=== PATIENT | male | born 1970 | race Caucasian/White ===

== ENCOUNTER 2017-01-02 09:27 | Inpatient (IN) | payer BC, OTHER ==
[~2017-01-02] VITALS: Ht 182.9 cm; Wt 90.0 kg
[~2017-01-02 09:27] MED LIST: ANDR1GEL TD; BUPR-175 PO
[2017-01-02 09:29] VITALS: BP 132/72; PULSE 75; RESP 14; TEMP 97.7; O2SAT 97
[2017-01-02] MEDS ORDERED: FOLI1TAB6 PO (09:42)
[2017-01-02] MEDS ORDERED: VANCOMYCIN INJ 1,000 MG in SODIUM CHLOR 0.9% 250 ML INJ 250 ML IV ONE (09:45)
[2017-01-02] MEDS ORDERED: ONDANSETRON HCL 4 MG/2 ML VIAL IV PUSH ONE (09:45)
[2017-01-02] MEDS ORDERED: HYDROmorphone HCL PF 1 MG/ML VIAL IV PUSH ONE (09:45)
[2017-01-02] MEDS ORDERED: TETANUS/DIPHTHERIA TOXOID ADULT 0.5 ML VIAL IM ONE (09:45)
--- NOTE | 2017-01-02 09:58 | PD ---
HPI Chief Complaint: Skin Problem Time Seen by Provider: 09:44 Travel History International Travel<30 days: No Contact w/Intl Traveler<30days: No Traveled to known affect area: No History of Present Illness HPI This is a 46-year-old male who presents with worsening swelling and pain of his left hand. Patient states 3 days ago he struck his hand while working on a car. He states that it started getting red and having pain. He was seen at [facility] where they started him on an antibiotic and a nonnarcotic pain medicine. He reports that today it is twice as swollen and the redness is running up his arm. He denies any fevers, chills. Patient reports increased pain and increased swelling. Unsure of his tetanus immunization. He reports they did not take an x-ray of his hand yesterday. PFSH Past Medical History Anxiety: Yes Diminished Hearing: No Psychiatric: Yes Tetanus Vaccination: > 5 Years Influenza Vaccination: No Past Surgical History Surgical History: No Previous Surgery Social History Alcohol Use: Yes (OCC ) Tobacco Use: No (quit 2 years ago) Substance Use: No Allergies-Medications (Allergen,Severity, Reaction): Coded Allergies: No Known Allergies (Verified Allergy, Unknown, 01/02/17) Reported Meds & Prescriptions Reported Meds & Active Scripts Active Reported Clindamycin (Clindamycin HCl) 300 Mg Cap 600 Mg PO Q8H Tramadol (Tramadol HCl) 50 Mg Tab 50 Mg PO Q6H PRN Folic Acid 1 Mg Tablet 1 Mg PO DAILY Review of Systems Except as stated in HPI: all other systems reviewed are Neg General / Constitutional: No: Fever, Chills HENT: No: Headaches, Lightheadedness Cardiovascular: No: Chest Pain or Discomfort, Palpitations Respiratory: No: Cough, Shortness of Breath Gastrointestinal: No: Nausea, Vomiting, Abdominal Pain Musculoskeletal: Positive: Limited ROM (hindered to pain), Edema (left dorsum of the hand left dorsum of the hand), Pain Neurologic: No: Weakness, Dizziness, Headache Psychiatric: No: Substance Abuse Physical Exam Narrative GENERAL: Well-nourished, well-developed patient, in no acute respiratory distress. SKIN: Focused skin assessment warm/dry. HEAD: Normocephalic/atraumatic. EYES: No scleral icterus. No injection or drainage. NECK: Supple, trachea midline. No JVD or lymphadenopathy. CARDIOVASCULAR: Regular rate and rhythm without murmurs, gallops, or rubs. RESPIRATORY: Breath sounds equal bilaterally. No accessory muscle use. GASTROINTESTINAL: Abdomen soft, non-tender, nondistended. MUSCULOSKELETAL: Examination patient's left hand, he has redness and swelling to the entire hand. There is lymphangitis to the left side of his posterior forearm. There is an abrasion/nidus in the middle of his dorsum of his hand. NEUROLOGICAL: Awake and alert. Cranial nerves II through XII intact. Motor grossly within normal limits. Five out of 5 muscle strength in all muscle groups. Normal speech. Data Data Last Documented VS Vital Signs Date Time Temp Pulse Resp B/P (MAP) Pulse Ox O2 Delivery O2 Flow Rate FiO2 01/02/17 11:30 97.9 81 16 128/83 (98) 99 Room Air Orders Orders Basic Metabolic Panel (Bmp) (01/02/17 09:44) Complete Blood Count With Diff (01/02/17 09:44) Blood Culture (01/02/17 09:44) Wound Culture And Gram Stain (01/02/17 09:44) Tetanus/Diphtheria Tox Adult (Tetanus/Di (01/02/17 09:45) Vancomycin Inj (Vancomycin Inj) (01/02/17 09:45) Ondansetron Inj (Zofran Inj) (01/02/17 09:45) Hydromorphone Pf Inj (Dilaudid Pf Inj) (01/02/17 09:45) Hand, Limited (2vws) (01/02/17 09:44) Admit Order (Ed Use Only) (01/02/17 11:44) Labs Laboratory Tests Test 01/02/17 10:00 White Blood Count 13.0 TH/MM3 Red Blood Count 5.28 MIL/MM3 Hemoglobin 15.4 GM/DL Hematocrit 46.5 % Mean Corpuscular Volume 88.2 FL Mean Corpuscular Hemoglobin 29.2 PG Mean Corpuscular Hemoglobin Concent 33.1 % Red Cell Distribution Width 14.1 % Platelet Count 193 TH/MM3 Mean Platelet Volume 8.6 FL Neutrophils (%) (Auto) 58.8 % Lymphocytes (%) (Auto) 17.4 % Monocytes (%) (Auto) 20.5 % Eosinophils (%) (Auto) 2.2 % Basophils (%) (Auto) 1.1 % Neutrophils # (Auto) 7.6 TH/MM3 Lymphocytes # (Auto) 2.3 TH/MM3 Monocytes # (Auto) 2.7 TH/MM3 Eosinophils # (Auto) 0.3 TH/MM3 Basophils # (Auto) 0.1 TH/MM3 CBC Comment AUTO DIFF Differential Comment AUTO DIFF CONFIRMED Blood Urea Nitrogen 15 MG/DL Creatinine 1.15 MG/DL Random Glucose 90 MG/DL Calcium Level 8.3 MG/DL Sodium Level 135 MEQ/L Potassium Level 4.3 MEQ/L Chloride Level 102 MEQ/L Carbon Dioxide Level 26.1 MEQ/L Anion Gap 7 MEQ/L Estimat Glomerular Filtration Rate 69 ML/MIN MDM Medical Decision Making Medical Screen Exam Complete: Yes Emergency Medical Condition: Yes Differential Diagnosis Saline as versus abscess versus failed outpatient antibiotics versus fracture Narrative Course This is a 46-year-old male presents today with complaints of left hand swelling and increased redness. The patient was seen yesterday at the clinic surgical care and started on antibiotics. The patient states that the swelling has doubled in size. He also reports increased pain. There is no reported fever. The patient has been started on vancomycin 1 g I V times one dose. There's been a wound culture and blood culture sent off. He'll be admitted to the medicine service for failed outpatient antibiotics. She was discussed with Dr. Canales who agreed to admit the patient to his service. Diagnosis Primary Impression: Cellulitis of hand, left Additional Impression: failed outpatient antibiotics Admitting Information Admitting Physician Requests: Admit Chapito Berman MD Jan 02, 2017 09:58
[2017-01-02 10:34] LABS: AUTOMATED NEUTROPHIL # 7.6 TH/MM3 (1.8-7.7); BASOPHIL # 0.1 TH/MM3 (0-0.2); BASOPHIL % 1.1 % (0.0-2.0); EOSINOPHIL # 0.3 TH/MM3 (0-0.4); EOSINOPHIL % 2.2 % (0.0-4.0); HEMATOCRIT 46.5 % (39.0-51.0); LYMPH % 17.4 % (9.0-44.0); LYMPHOCYTE # 2.3 TH/MM3 (1.0-4.8); MEAN CELL VOLUME 88.2 FL (80.0-100.0); MEAN CORPUSCULAR HEMOGLOBIN 29.2 PG (27.0-34.0); MEAN CORPUSCULAR HGB CONC 33.1 % (32.0-36.0); MONO % 20.5 % (0.0-8.0); NEUT % 58.8 % (16.0-70.0); PLATELET COUNT 193 TH/MM3 (150-450); RED BLOOD COUNT 5.28 MIL/MM3 (4.50-5.90); RED CELL DISTRIBUTION WIDTH 14.1 % (11.6-17.2)
[2017-01-02 10:36] LABS: HEMO FLAGS AUTO DIFF
[2017-01-02 10:50] LABS: BICARBONATE 26.1 MEQ/L (21.0-32.0); POTASSIUM 4.3 MEQ/L (3.5-5.1)
[2017-01-02 11:01] LABS: SCAN/DIFF AUTO DIFF CONFIRMED
[2017-01-02 11:30] VITALS: BP 128/83; PULSE 81; RESP 16; TEMP 97.9; O2SAT 99
--- NOTE | 2017-01-02 11:47 | HHI.HP ---
HPI Service Family Medicine Primary Care Physician Emil Linda M.D. Admission Diagnosis left hand cellulitis, failed outpatient antibiotics Diagnoses: International Travel<30 Days: No Contact w/Intl Traveler<30days: No Known Affected Area: No History of Present Illness Patient is a 46- year-old- Male with no significant past medical history presenting to the ED with complaints of worsening Left hand pain, redness and swelling. Patient stated that Thursday he lacerated the top of his Left hand while repairing a car. He went to [place] yesterday where he was prescribed bactrim and clyndamycin without any improvements. He reports today his Left hand pain and swelling increased and the redness is spreading past his wrist. Pt rates pain 6-7/10 initially but currently 2/10 after pain medication were given. Denies fever, chills, N/V, numbness or tingling of Left hand. Of note pt stated he received tetanus vaccine. Patient is accompanied by his . (Deb Álvarez MD, R1) Review of Systems Constitutional: DENIES: Fever, Chills Gastrointestinal: DENIES: Nausea, Vomiting Neurologic: DENIES: Paresthesias Other as per hpi (Deb Álvarez MD, R1) Past Family Social History Past Medical History none Past Surgical History none Reported Medications Testosterone inj folic acid (Deb Álvarez MD, R1) Allergies: Coded Allergies: No Known Allergies (Verified Allergy, Unknown, 01/02/17) Family History Mother- DM Father- hepatitis C Social History Patient lives with and kids Denies smoking or illicit drug use Alcohol use twice a wk, about 6-7 beers Marijuana use daily (Deb Álvarez MD, R1) Physical Exam Vital Signs Vital Signs Date Time Temp Pulse Resp B/P (MAP) Pulse Ox O2 Delivery O2 Flow Rate FiO2 01/02/17 10:26 17 01/02/17 09:39 17 01/02/17 09:29 97.7 75 14 132/72 (92) 97 Physical Exam GENERAL: This is a well-nourished, well-developed patient, in no apparent distress. SKIN: No rashes, ecchymoses or lesions. Cool and dry. HEAD: Atraumatic. Normocephalic. No temporal or scalp tenderness. EYES: Pupils equal round and reactive. Extraocular motions intact. No scleral icterus. No injection or drainage. ENT: Nose without bleeding, purulent drainage or septal hematoma. Throat without erythema, tonsillar hypertrophy or exudate. Uvula midline. Airway patent. NECK: Trachea midline. No JVD or lymphadenopathy. Supple, nontender, no meningeal signs. CARDIOVASCULAR: Normal S1 and S2. Regular rate and rhythm without murmurs, gallops, or rubs. RESPIRATORY: Clear to auscultation. Breath sounds equal bilaterally. No wheezes , rales, or rhonchi. GASTROINTESTINAL: Abdomen soft, non-tender, nondistended. No hepato-splenomegaly , or palpable masses. No guarding. MUSCULOSKELETAL: Left hand: Crusted laceration, erythema of dorsum aspect of hand extending to distal forearm. +2 Swelling noted mainly on dorsum of Left hand. Limited range of motion due to pain. +2 radial pulse on Left hand. Normal sensation. No pus was observed on palpation. No calf tenderness. Negative Homans sign bilaterally. +2 Post. tibial pulses BL. NEUROLOGICAL: Awake and alert. Cranial nerves II through XII intact. Motor and sensory grossly within normal limits. Normal sensation in all extremities. Normal speech. Laboratory Laboratory Tests Test 01/02/17 10:00 White Blood Count 13.0 Red Blood Count 5.28 Hemoglobin 15.4 Hematocrit 46.5 Mean Corpuscular Volume 88.2 Mean Corpuscular Hemoglobin 29.2 Mean Corpuscular Hemoglobin Concent 33.1 Red Cell Distribution Width 14.1 Platelet Count 193 Mean Platelet Volume 8.6 Neutrophils (%) (Auto) 58.8 Lymphocytes (%) (Auto) 17.4 Monocytes (%) (Auto) 20.5 Eosinophils (%) (Auto) 2.2 Basophils (%) (Auto) 1.1 Neutrophils # (Auto) 7.6 Lymphocytes # (Auto) 2.3 Monocytes # (Auto) 2.7 Eosinophils # (Auto) 0.3 Basophils # (Auto) 0.1 CBC Comment AUTO DIFF Differential Comment AUTO DIFF CONFIRMED Blood Urea Nitrogen 15 Creatinine 1.15 Random Glucose 90 Calcium Level 8.3 Sodium Level 135 Potassium Level 4.3 Chloride Level 102 Carbon Dioxide Level 26.1 Anion Gap 7 Estimat Glomerular Filtration Rate 69 Date/Time Source Procedure Growth Status 01/02/17 10:00 Blood Peripheral Aerobic Blood Culture Pending Received 01/02/17 10:00 Blood Peripheral Anaerobic Blood Culture Pending Received 01/02/17 10:10 Wound Hand Gram Stain - Final Resulted 01/02/17 10:10 Wound Hand Wound Culture Pending Resulted (Deb Álvarez MD, R1) Result Diagram: 01/02/17 1000 01/02/17 1000 Imaging Last Impressions Hand X-Ray 01/02/17 0944 Signed Impressions: Service Date/Time: Monday, January 02, 2017 11:09 - CONCLUSION: Unremarkable limited examination of the left hand. Dave Olivera MD (Deb Álvarez MD, R1) Caprini VTE Risk Assessment Caprini VTE Risk Assessment: No/Low Risk (score <= 1) Caprini Risk Assessment Model Point Value = 1 Point Value = 2 Point Value = 3 Point Value = 5 Age 41-60 Minor surgery BMI > 25 kg/m2 Swollen legs Varicose veins or History of unexplained or recurrent spontaneous Oral contraceptives or hormone replacement Sepsis (< 1 month) Serious lung disease, including pneumonia (< 1 month) Abnormal pulmonary function Acute myocardial infarction Congestive heart failure (< 1 month) History of inflammatory bowel disease Medical patient at bed rest Age 61-74 Arthroscopic surgery Major open surgery (> 45 min) Laparoscopic surgery (> 45 min) Malignancy Confined to bed (> 72 hours) Immobilizing plaster cast Central venous access Age >= 75 History of VTE Family history of VTE Factor V Leiden Prothrombin [id number] Lupus anticoagulant Anticardiolipin antibodies Elevated serum homocysteine Heparin-induced thrombocytopenia Other congenital or acquired thrombophilia Stroke (< 1 month) Elective arthroplasty Hip, pelvis, or leg fracture Acute spinal cord injury (< 1 month) Prophylaxis Regimen Total Risk Factor Score Risk Level Prophylaxis Regimen 0-1 Low Early ambulation 2 Moderate Order ONE of the following: *Sequential Compression Device (SCD) *Heparin 5000 units SQ BID 3-4 Higher Order ONE of the following medications: *Heparin 5000 units SQ TID *Enoxaparin/Lovenox 40 mg SQ daily (WT < 150 kg, CrCl > 30 mL/min) *Enoxaparin/Lovenox 30 mg SQ daily (WT < 150 kg, CrCl > 10-29 mL/min) *Enoxaparin/Lovenox 30 mg SQ BID (WT < 150 kg, CrCl > 30 mL/min) AND/OR *Sequential Compression Device (SCD) 5 or more Highest Order ONE of the following medications: *Heparin 5000 units SQ TID (Preferred with Epidurals) *Enoxaparin/Lovenox 40 mg SQ daily (WT < 150 kg, CrCl > 30 mL/min) *Enoxaparin/Lovenox 30 mg SQ daily (WT < 150 kg, CrCl > 10-29 mL/min) *Enoxaparin/Lovenox 30 mg SQ BID (WT < 150 kg, CrCl > 30 mL/min) AND *Sequential Compression Device (SCD) (Deb Álvarez MD, R1) Assessment and Plan Assessment and Plan Patient is a 46 yo male admitted for of Left hand cellulitis. Patient failed outpatient treatment with bactrim. hemodynamically stable. Afebrile, WBC- 13. Code Status Full code Discussed Condition With sdw Dr. Canales wdw Dr. Aleman (Deb Álvarez MD, R1) Attending Attestation THIS CASE WAS DISCUSSED WITH THE RESIDENT PHYSICIAN. I HAVE REVIEWED THE RECORD AND AGREE WITH THE ABOVE NOTE AND PLAN OF CARE WAS DISCUSSED. I HAVE AUTHORIZED THE ORDER FOR PLACEMENT IN OUT-PATIENT OBSERVATION STATUS. (Prisca Aleman MD) Problem List: (1) Cellulitis of hand, left ICD Codes: L03.114 - Cellulitis of left upper limb Status: Acute Plan: Left hand cellulitis after laceration with car bolt 3 days ago. Range of motion limited due to pain on exam. Neurologically intact. -Afebrile, VS WNL -Leukocytosis -Hand XRAY: no soft tissue swelling, dislocation or fx. -started on ancef IV Q8h -f/u am labs (2) Nutrition, metabolism, and development symptoms ICD Codes: R63.8 - Other symptoms and signs concerning food and fluid intake Plan: Fluids: not indicated at this time Electrolytes: WNL, replete as needed Nutrition: regular diet DVT ppx: not indicated (Deb Álvarez MD, R1) Deb Álvarez MD, R1 Jan 02, 2017 11:47 Prisca Aleman MD Jan 03, 2017 07:47
[2017-01-02] MEDS ORDERED: TRAM50TA PO (11:54)
[2017-01-02] MEDS ORDERED: CLIN300C5 PO (11:54)
--- NOTE | 2017-01-02 11:56 | RADRPT ---
EXAM DATE/TIME: 01/02/2017 11:09 [facility] COMPARISON: No previous studies available for comparison. INDICATIONS : Lacerated Left hand on Thursday with car bolt. MEDICAL HISTORY : None. SURGICAL HISTORY : None. ENCOUNTER: Initial ACUITY: 3 days PAIN SCORE: 3/10 LOCATION: Left Top of hand. FINDINGS: Two view examination of the left hand demonstrates no soft tissue swelling, dislocation, or fracture. The joint spaces are maintained. Bony mineralization is normal. CONCLUSION: Unremarkable limited examination of the left hand. Dave Olivera MD on January 02, 2017 at 11:54 Board Certified Radiologist. This report was verified electronically.
[2017-01-02] MEDS ORDERED: SODIUM CHLORIDE 0.9% FLUSH 10 ML FLUSH IV FLUSH PRN (12:15)
[2017-01-02] MEDS ORDERED: ACETAMINOPHEN 325 MG TAB PO PRN (12:30)
[2017-01-02 12:45] VITALS: BP 132/77; TEMP 97.8
[2017-01-02 16:00] VITALS: BP 121/76; PULSE 74; RESP 18; TEMP 98.7; O2SAT 95
[2017-01-02 20:00] VITALS: BP 128/72; PULSE 92; RESP 22; TEMP 98.8; O2SAT 94
[2017-01-02] MEDS: KETOROLAC TROMETHAMINE 30 MG/ML (IVP) VIAL IV PUSH PRN (20:00)
[2017-01-02] MEDS: SODIUM CHLORIDE 0.9% FLUSH 10 ML FLUSH IV FLUSH SCH (20:04)
[2017-01-02] MEDS: oxyCODONE/ACETAMINOPHEN 5 MG/325 MG TAB PO PRN (21:38)
[2017-01-02] MEDS: ZOLPIDEM TARTRATE 10 MG TAB PO PRN (21:38)
[2017-01-03] VITALS: BP 119/65; PULSE 86; RESP 22; TEMP 97.8; O2SAT 95
[2017-01-03] MEDS: KETOROLAC TROMETHAMINE 30 MG/ML (IVP) VIAL IV PUSH PRN ×4 (04:09→23:44)
[2017-01-03] MEDS: oxyCODONE/ACETAMINOPHEN 5 MG/325 MG TAB PO PRN ×4 (05:21→22:04)
[2017-01-03 07:15] LABS: AUTOMATED NEUTROPHIL # 7.3 TH/MM3 (1.8-7.7); BASOPHIL # 0.1 TH/MM3 (0-0.2); BASOPHIL % 0.6 % (0.0-2.0); EOSINOPHIL # 0.4 TH/MM3 (0-0.4); EOSINOPHIL % 2.9 % (0.0-4.0); HEMATOCRIT 43.2 % (39.0-51.0); LYMPH % 19.2 % (9.0-44.0); LYMPHOCYTE # 2.4 TH/MM3 (1.0-4.8); MEAN CELL VOLUME 88.9 FL (80.0-100.0); MEAN CORPUSCULAR HEMOGLOBIN 29.6 PG (27.0-34.0); MEAN CORPUSCULAR HGB CONC 33.3 % (32.0-36.0); NEUT % 59.3 % (16.0-70.0); PLATELET COUNT 165 TH/MM3 (150-450); RED BLOOD COUNT 4.86 MIL/MM3 (4.50-5.90); RED CELL DISTRIBUTION WIDTH 14.2 % (11.6-17.2); WHITE BLOOD COUNT 12.3 TH/MM3 (4.0-11.0)
[2017-01-03 07:28] LABS: BICARBONATE 24.4 MEQ/L (21.0-32.0); POTASSIUM 4.3 MEQ/L (3.5-5.1)
[2017-01-03 07:30] LABS: HEMO FLAGS AUTO DIFF
[2017-01-03 08:00] VITALS: BP 116/68; PULSE 70; RESP 17; TEMP 97.4; O2SAT 94
[2017-01-03] MEDS ORDERED: INFLUENZA VIRUS VACCINE (QUADRIVALENT) 0.5 ML SYR IM ONE (10:00)
[2017-01-03 10:51] LABS: SCAN/DIFF AUTO DIFF CONFIRMED
[2017-01-03] MEDS: SODIUM CHLORIDE 0.9% FLUSH 10 ML FLUSH IV FLUSH SCH ×2 (11:32→21:56)
--- NOTE | 2017-01-03 11:34 | HHI.FPPN ---
Subjective Remarks Patient is resting in bed and in no distress. He has no chest pain, shortness of breath, abdominal pain, nausea, vomiting, or diarrhea. His left hand swelling and erythema have decreased a small amount since yesterday. He is able to move all the digits of his hand without pain or limitation. There are no streaks of erythema traveling up his arm. He has pain just on the direct site of the laceration but nowhere else. He has no other complaints this morning. (Samuel Oliva MD R3) Objective Vitals Vital Signs Date Time Temp Pulse Resp B/P (MAP) Pulse Ox O2 Delivery O2 Flow Rate FiO2 01/03/17 08:00 97.4 70 17 116/68 (84) 94 01/03/17 00:00 97.8 86 22 119/65 (83) 95 01/03/17 00:00 97.8 86 22 119/65 (83) 95 01/02/17 20:00 98.8 92 22 128/72 (90) 94 01/02/17 16:00 98.7 74 18 121/76 (91) 95 01/02/17 12:45 97.8 78 16 132/77 (95) 99 01/02/17 11:30 97.9 81 16 128/83 (98) 99 Room Air I/O 01/02/17 01/02/17 01/02/17 01/03/17 01/03/17 01/03/17 06:59 14:59 22:59 06:59 14:59 22:59 Intake Total 250 ml 580 ml 340 ml Output Total 4 ml Balance 250 ml 576 ml 340 ml Intake Oral 480 ml 240 ml IV Total 250 ml 100 ml 100 ml Output Urine Total 4 ml # Voids 1 1 # Bowel Movements 3 (Samuel Oliva MD R3) Result Diagram: 01/03/17 0500 01/03/17 0500 Objective Remarks General: Sitting up in bed, in no distress, appears comfortable. Skin: 1 cm area of healed laceration on the dorsal aspect of his left hand, with scab formation over the site. Pain on palpation just at that particular site and nowhere else. Erythema covers the dorsal left hand but does not extend circumferentially around the hand. Erythema extends up to just proximal to the left wrist. HEENT: Normocephalic, no conjunctivitis or scleral icterus, no nasal discharge. Neck: Supple CV: RRR, no murmur, regular pulses. Radial pulse of left hand is intact. Capillary refill of left hand is normal, less than 2 seconds. Lungs: CTAB Abdomen: Soft, nontender, nondistended, normal bowel sounds. Ext: Swelling of the left hand, with mild pitting, decreased from yesterday somewhat. Neuro: Left hand digits move without any limitation or pain. Good sensation in the left digits. (Samuel Oliva MD R3) A/P Assessment and Plan 46 yo male admitted for of left hand cellulitis after laceration with a relatively clean screw while working on a car. Patient failed outpatient treatment with Bactrim. Discharge Planning Pending return of culture and sensitivities, and continued improvement in cellulitis. (Samuel Oliva MD R3) Attending Attestation Patient seen and examined. Case reviewed and discussed with the resident team. Agree with plan of care as discussed with me and documented in the resident note. The patients symptoms and exam from this morning has progressed. His hand is a little more edematous and into the forearm, he still has good cap- refill, good sensation and movement of his fingers, wrist and hand. Do not feel he has compartment syndrome at this point requiring intervention, however, I am concerned with the rapid progression of his exam over a few hours this morning. His preliminary culture is now growing staph and based on the rapid progression suspect MRSA. Will stop the Ancef and place patient on vancomycin. Will consult hand surgery to evaluate the patient and to assist with monitoring and/or treatment if the swelling in his hand continues to worsen. (Prisca Aleman MD) Problem List: (1) Cellulitis of hand, left ICD Codes: L03.114 - Cellulitis of left upper limb Status: Acute Plan: Left hand cellulitis after laceration with screw 3 days ago. Left hand has full range of motion, normal capillary refill, intact sensation. Erythema and swelling on on the dorsal hand but does not extend circumferentially around the hand. He remains afebrile. He has mild leukocytosis at 12.3, down from 13 yesterday. Hand x-ray shows no soft tissue swelling, dislocation, or fracture. No obvious abscess on physical exam. - Continue Ancef IV q8hrs. - Follow wound culture, adjust antibiotics according to sensitivities. - Follow for fevers and leukocytosis, monitor cellulitis for improvement. (2) Nutrition, metabolism, and development symptoms ICD Codes: R63.8 - Other symptoms and signs concerning food and fluid intake Plan: Fluids: by mouth Electrolytes: WNL Nutrition: regular diet DVT ppx: low risk for DVT, encourage mobilization (Samuel Oliva MD R3) Samuel Oliva MD R3 Jan 03, 2017 11:34 Prisca Aleman MD Jan 03, 2017 13:49
[2017-01-03 12:00] VITALS: BP 125/91; PULSE 80; RESP 17; TEMP 98.5; O2SAT 96
[2017-01-03] MEDS ORDERED: VANCOMYCIN INJ 1,000 MG in SODIUM CHLOR 0.9% 250 ML INJ 250 ML IV SCH ×2 (13:00→22:00)
--- NOTE | 2017-01-03 14:08 | HHI.FPPN ---
Addendum to progress note ADDENDUM Reason for addendum: Additonal documentation Additional information Informed by nurse that patient reports increased swelling and erythema. Went to reevaluate the patient at about 1:00 PM. Indeed, the hand does appear somewhat more edematous and erythematous. He is still able to move all digits, sensation remains intact, has normal capillary refill, and he does not have pain. He does report tingling in his digits that was not there before. Given the status change , we have decided to start vancomycin 1g every 12 hours and consult hand surgery. We will discuss the case with hand surgery on the phone. Will also add a nursing order to monitor closely for symptoms of compartment syndrome. Seen and discussed with Dr. Aleman. Dr. Álvarez spoke with Dr. Salinas by phone about the patient and he states he will come evaluate the patient now. Samuel Oliva MD R3 Jan 03, 2017 14:08
[2017-01-03] MEDS ORDERED: Vancomycin Consult Pharmacy 1 EA OTHER SCH (14:15)
[2017-01-03 16:00] VITALS: BP 121/73; PULSE 91; RESP 17; TEMP 98.3; O2SAT 95
--- NOTE | 2017-01-03 16:21 | MB ---
cc: KAYY BROWN DATE OF CONSULTATION 01/03/17 REASON FOR CONSULTATION Left hand infection. HISTORY OF PRESENT ILLNESS The patient is a 46-year-old left-hand dominant male who presented with complaints of injury to the left hand about 4 days ago. The patient states he was working on his car with a wrench and accidentally lacerated the dorsal aspect of the left hand. The patient was seen at Urgent Care, initially he was put on p.o. antibiotics. Because of worsening symptoms the patient was admitted to [facility] 2 days ago. The patient was put on IV antibiotics. Hand surgery was consulted today for worsening pain and swelling. The patient complains of tingling of the fingertips. Denies any fever. He also complains of mild drainage from the region. The patient also complains of worsening swelling and redness. Denies any constant throbbing pain. PAST MEDICAL AND SURGICAL HISTORY Noted. PHYSICAL EXAMINATION DIRECTED EXAMINATION: Examination of the left hand reveals scab laceration on the dorsal ulnar aspect of the hand. Surrounding swelling and erythema noted. The swelling and erythema extends along the dorsal aspect of the hand and wrist. Tenderness noted along the extensor tendon sheath over the dorsal aspect of the wrist and distal forearm. There is also streaking lymphangitis along the volar aspect of the forearm. No evidence of compartment syndrome of the forearm or the hand noted. The patient is able to make a full fist. Terminal degrees of flexion painful. Terminal degrees of finger extension painful. Wrist range of motion is associated with pain. He has intact capillary refill. He has intact distal sensation. He has palpable radial and ulnar pulses. LABORATORY DATA His lab work was reviewed. He has a white count of 12.3 which is trending down from 13. The patient had an x-ray which was negative for a foreign body. ASSESSMENT A 46-year-old male with infection of the left hand with cellulitis, questionable involvement of the extensor tendon sheath. Surrounding skin was cleaned with alcohol wipes where the scab was removed. No evidence of purulent material noted. We will keep the limb elevated to an IV pole. We will keep the patient n.p.o., book him tentatively for incision and drainage. We will proceed with incision and drainage if there is no improvement in symptoms. As the patient just had food will try to get this done later today or tomorrow morning. Continue with IV antibiotics. MD ABHISHEK Sanchez /3:39 PM /4:12 PM [facility]
[2017-01-03] MEDS ORDERED: GENTAMICIN SULFATE 80 MG/2 ML VIAL ONE (19:57)
[2017-01-03 20:00] VITALS: TEMP 96.6
[2017-01-03] MEDS ORDERED: LACTATED RINGER'S 1000 ML IV PRN (20:00)
--- NOTE | 2017-01-03 20:58 | PD.OP ---
Operative Report Preoperative Diagnosis: (1) abscess left hand/wrist Postoperative Diagnosis: (1) Infectious tenosynovitis of left wrist extensor (2) abscess left hand/wrist Procedure: incision and drainage/extensor tenosynovectomy fourth extensor compartment left hand/wrist Anesthesia: general Surgeon: Caio Salinas Research Lab Assistant(s): cristhian Operation and Findings: abscess left hand dorsum infectious extensor tenosynovitis fourth compartment left wrist Caio Salinas MD Jan 03, 2017 20:58
[2017-01-03] MEDS ORDERED: DO NOT ADM ANY ANTICOAGULANT DRUGS PRN (21:00)
[2017-01-03] MEDS ORDERED: *ONDANSETRON 4 MG VIAL PERIprocedural Use ONLY ONE (21:12)
--- NOTE | 2017-01-03 21:25 | MP ---
cc: KAYY BROWN DATE OF SURGERY 01/03/17 PREOPERATIVE DIAGNOSIS Abscess left hand/wrist. POSTOPERATIVE DIAGNOSIS Infectious tenosynovitis fourth extensor compartment left wrist and abscess left hand/wrist. PROCEDURE Incision and drainage left hand abscess Extensor tenosynovectomy fourth extensor compartment left hand/wrist. SURGEON Dr. Fazal Brown ANESTHESIA General ESTIMATED BLOOD LOSS Minimal TOURNIQUET TIME 49 minutes at 250 mmHg SPECIMEN SENT Swab for culture sensitivity Dispostion: To PACU stable. INDICATIONS The patient is a 46-year-old left-hand dominant male who presented with complaints of injury to the left hand dorsum 4 days ago. The patient was tightening the car tire when his wrench slipped. He had the laceration of the dorsal aspect of the left hand. The patient was seen initially at an outside facility. He was put on p.o. antibiotics. He was admitted to the hospital for IV antibiotics and the patient had worsening symptoms. On examination, he had swelling over the dorsal aspect of the hand and wrist. The patient also has a healed scab over the dorsal aspect of the hand. He had tenderness over the extensor compartments of the hand and wrist. The patient was consented for incision and drainage left hand/wrist. He was explained risk and benefits of the procedure. PROCEDURE IN DETAIL The patient was brought to the operating room under general anesthesia. The left upper extremity was thoroughly prepped and draped. After limb elevation, tourniquet was inflated to 250 mmHg. Incision was marked in a curvilinear fashion over the dorsal aspect of the hand measuring about [id number] centimeters. Incision was made over the proposed incision site incorporating the scab. The scab was excised. Incision was deepened on intraoperative findings included pus within the fourth extensor compartment of the hand and wrist. Hence, decision was made to proceed with extending the incision proximally. The incision was extended proximal to the wrist extensor retinaculum. On exposure, he had extensive inflammatory granulation tissue in the region. Extensor retinaculum was released at the distal part and there was evidence of purulent material within the extensor compartment along with necrotic tissue involving the fourth extensor compartment tendon sheath. Incision was then made proximal to the extensor retinaculum in the distal forearm measuring about 3 cm. An incision was made over the proposed incision site. Soft tissue dissection was carried out. The deep forearm fascia was released. Part of the extensor retinaculum was released at the proximal part. There was evidence of extension of the infection to the fourth extensor compartment tendon sheath over the distal forearm. Excisional debridement of infected extensor tenosynovium was carried out. This was extending along all the flexor tendons including the extensor indices proprius and the EDC tendon to all the fingers. Material was sent for culture and sensitivity. Part of the extensor retinaculum measuring about 1 cm strip was left intact to prevent bow string. Thorough wash was given using 2 liters of normal saline mixed with irrigant. There was also involvement of the subfacial extensor compartment on the dorsal aspect of the hand which was debrided. The tourniquet is deflated. Total tourniquet time was 49 minutes. He had good distal circulation on release of tourniquet. Bleeding points were cauterized with bipolar cautery. Packing of the fourth extensor compartment was carried out both proximally and distally. Skin incision was loosely approximated using 4-0 nylon in a horizontal mattress interrupted fashion. Bulky hand dressing was applied which was held in place by Sof-Rol and bias hand wrap. He had good distal circulation at the end of the procedure. The patient was sent to recovery room in stable condition. We will continue with IV antibiotics. We will keep the limb elevated. We will change the packing tomorrow. Kayy Brown MD SE/ /9:07 PM /9:15 PM PEDRO
[2017-01-03 22:01] VITALS: BP 155/76; PULSE 87; RESP 20; TEMP 96.6; O2SAT 96
[2017-01-03] MEDS: ZOLPIDEM TARTRATE 10 MG TAB PO PRN (23:53)
[2017-01-04] VITALS: BP 133/83; PULSE 79; RESP 20; TEMP 98.6; O2SAT 96
[2017-01-04] MEDS: oxyCODONE/ACETAMINOPHEN 5 MG/325 MG TAB PO PRN ×5 (02:36→21:18)
[2017-01-04 04:00] VITALS: BP 115/68; PULSE 76; RESP 20; TEMP 97.1; O2SAT 91
[2017-01-04] MEDS: KETOROLAC TROMETHAMINE 30 MG/ML (IVP) VIAL IV PUSH PRN ×4 (05:51→23:38)
[2017-01-04 07:48] LABS: BASOPHIL # 0.1 TH/MM3 (0-0.2); BASOPHIL % 0.5 % (0.0-2.0); EOSINOPHIL # 0.4 TH/MM3 (0-0.4); EOSINOPHIL % 3.4 % (0.0-4.0); HEMATOCRIT 40.4 % (39.0-51.0); HEMO FLAGS DIFF FINAL; LYMPHOCYTE # 1.7 TH/MM3 (1.0-4.8); MEAN CELL VOLUME 89.1 FL (80.0-100.0); MEAN CORPUSCULAR HEMOGLOBIN 30.1 PG (27.0-34.0); MEAN CORPUSCULAR HGB CONC 33.8 % (32.0-36.0); MONO % 15.4 % (0.0-8.0); NEUT % 64.7 % (16.0-70.0); PLATELET COUNT 168 TH/MM3 (150-450); RED BLOOD COUNT 4.53 MIL/MM3 (4.50-5.90); RED CELL DISTRIBUTION WIDTH 14.2 % (11.6-17.2); WHITE BLOOD COUNT 10.8 TH/MM3 (4.0-11.0)
[2017-01-04 08:00] VITALS: BP 123/68; PULSE 83; RESP 17; TEMP 98.1; O2SAT 94
[2017-01-04 08:11] LABS: ANION GAP 8 MEQ/L (5-15); AST (GOT) 38 U/L (15-37); BICARBONATE 25.1 MEQ/L (21.0-32.0); BLOOD UREA NITROGEN 15 MG/DL (7-18); CHLORIDE 104 MEQ/L (98-107); GLOMERULAR FILTRATION RATE 73 ML/MIN (>89); POTASSIUM 4.2 MEQ/L (3.5-5.1); SODIUM (NA) 137 MEQ/L (136-145)
[2017-01-04 08:12] LABS: ALT (GPT) 34 U/L (12-78)
[2017-01-04 08:14] LABS: ALKALINE PHOSPHATASE 62 U/L (45-117); TOTAL BILIRUBIN ADULT 0.4 MG/DL (0.2-1.0)
[2017-01-04] MEDS: SODIUM CHLORIDE 0.9% FLUSH 10 ML FLUSH IV FLUSH SCH ×2 (08:42→20:09)
--- NOTE | 2017-01-04 08:57 | HHI.FPPN ---
Subjective Remarks Yesterday evening taken to surgery for I&D with tenosynovectomy. Tolerated procedure well, pain well-controlled today AM. Moving hand without difficulty. No fevers or chills. No CP/SOB. (Zaire Canales MD R2) Objective Vitals Vital Signs Date Time Temp Pulse Resp B/P (MAP) Pulse Ox O2 Delivery O2 Flow Rate FiO2 01/04/17 08:00 98.1 83 17 123/68 (86) 94 01/04/17 04:00 97.1 76 20 115/68 (84) 91 01/04/17 03:43 18 01/04/17 00:44 18 01/04/17 00:00 98.6 79 20 133/83 (100) 96 01/03/17 22:01 96.6 87 20 155/76 (102) 96 01/03/17 21:35 98.1 96 16 143/84 (103) 98 Nasal Cannula 3 01/03/17 21:15 88 10 133/80 (97) 97 Nasal Cannula 3 01/03/17 21:04 97.2 88 16 128/74 (92) 97 Nasal Cannula 3 01/03/17 20:00 96.6 01/03/17 16:00 98.3 91 17 121/73 (89) 95 01/03/17 12:00 98.5 80 17 125/91 (102) 96 I/O 01/03/17 01/03/17 01/03/17 01/04/17 01/04/17 01/04/17 07:00 15:00 23:00 07:00 15:00 23:00 Intake Total 340 ml 1890 ml 240 ml Output Total 10 ml Balance 340 ml 1880 ml 240 ml Intake Oral 240 ml 1140 ml 240 ml IV Total 100 ml 750 ml Estimated Blood Loss 10 ml # Voids 1 4 2 # Bowel Movements 1 (Zaire Canales MD R2) Result Diagram: 01/04/17 0635 01/04/17 0635 Imaging Last Impressions Hand X-Ray 01/02/17 0944 Signed Impressions: Service Date/Time: Monday, January 02, 2017 11:09 - CONCLUSION: Unremarkable limited examination of the left hand. Dave Olivera MD Objective Remarks General: Sitting up on edge of bed, in no distress, appears comfortable. Skin: Hand/wrist wrapped in dressing and elevated in sling CV: NRRR, no murmur. Capillary refill of left hand is normal, less than 2 seconds. Lungs: CTAB Abdomen: Soft, nontender, nondistended, normal bowel sounds. Ext: L hand and wrist wrapped and in sling as above. Moves all digits well. Neuro: Good sensation in all left digits. Procedures 01/03 - I&D with extensor tenosynovectomy of 4th external compartment L hand/ wrist Medications and IVs Current Medications Medications (Trade) Dose Ordered Sig/Jocelyn Route Start Time Stop Time Status Last Admin (NS Flush) 2 ml UNSCH PRN IV FLUSH 01/02/17 12:15 (NS Flush) 2 ml BID IV FLUSH 01/02/17 21:00 01/04/17 08:42 (Toradol Inj) 30 mg Q6HR PRN IV PUSH 01/02/17 12:30 01/07/17 12:29 01/04/17 12:00 (Tylenol) 650 mg Q4H PRN PO 01/02/17 12:30 (Percocet 5-325 Mg) 1 tab Q4H PRN PO 01/02/17 12:45 01/04/17 08:42 (Ambien) 10 mg HS PRN PO 01/02/17 20:00 01/03/17 23:53 Pharmacy Profile Note 0 ml @ 0 mls/hr UNSCH OTHER 01/03/17 14:15 Lactated Ringer's 1,000 ml @ 30 mls/hr Q24H PRN IV 01/03/17 20:00 01/06/17 19:59 Miscellaneous Information ALL NURSING DEPARTME... UNSCH PRN .XX 01/03/17 21:00 01/04/17 20:59 (Zaire Canales MD R2) A/P Assessment and Plan Previously healthy 46 yo male presenting with: (Zaire Canales MD R2) Attending Attestation Patient seen and examined. Case reviewed and discussed with the resident team. Agree with plan of care as discussed with me and documented in the resident note. (Prisca Aleman MD) Problem List: (1) Infectious tenosynovitis of left wrist extensor ICD Codes: M65.132 - Other infective (teno)synovitis, left wrist Status: Resolved Plan: Admitted with cellulitis, taken to OR on 01/03 due to worsening symptoms , found to have infectious tenosynovitis S/p I&D with extensor tenosynovectomy of 4th compartment L hand/wrist on 01/03 Initial wound culture grew MSSA, san-sensitive Abscess Cx from OR pending - Hand surgery consulted, appreciate recommendations - Performed procedure noted above - F/u culture of abscess fluid - Continue antibiotic coverage with vancomycin until OR culture results available or until otherwise changed by hand surgery - Tylenol PRN for mild pain, Toradol for moderate/severe pain, Percocet for breakthrough pain (2) abscess left hand/wrist Status: Resolved Plan: S/p I&D - Management as above (3) Cellulitis of hand, left ICD Codes: L03.114 - Cellulitis of left upper limb Status: Acute Plan: See above (4) Nutrition, metabolism, and development symptoms ICD Codes: R63.8 - Other symptoms and signs concerning food and fluid intake Plan: Fluids: by mouth Electrolytes: WNL Nutrition: regular diet DVT ppx: low risk for DVT, encourage mobilization Code status: full code Dispo: Pending clearance by hand surgery (Zaire Canales MD R2) Zaire Canales MD R2 Jan 04, 2017 08:57 Prisca Aleman MD Jan 05, 2017 08:24
[2017-01-04 12:00] VITALS: BP 121/66; PULSE 71; RESP 16; TEMP 98.6; O2SAT 95
[2017-01-04] MEDS ORDERED: Vancomycin Consult Pharmacy 1 EA OTHER SCH (12:15)
[2017-01-04] MEDS: VANCOMYCIN 1,000 MG/NS 250 ML IV SCH ×2 (14:24)
[2017-01-04 16:00] VITALS: BP 120/66; PULSE 78; RESP 16; TEMP 97.8; O2SAT 96
[2017-01-04 20:00] VITALS: BP 126/77; PULSE 88; RESP 17; TEMP 99.4; O2SAT 93
[2017-01-04] MEDS: ZOLPIDEM TARTRATE 10 MG TAB PO PRN (23:37)
[2017-01-05] VITALS (8 sets, daily range): BP systolic 120–136; BP diastolic 60–88; PULSE 71–84; RESP 17–20; TEMP 96.9–99.5; O2SAT 91–96
[2017-01-05] MEDS: oxyCODONE/ACETAMINOPHEN 5 MG/325 MG TAB PO PRN ×5 (02:19→22:03)
[2017-01-05] MEDS: VANCOMYCIN 1,000 MG/NS 250 ML IV SCH ×4 (02:20→14:00)
[2017-01-05] MEDS: KETOROLAC TROMETHAMINE 30 MG/ML (IVP) VIAL IV PUSH PRN ×4 (05:44→19:27)
[2017-01-05 07:54] LABS: AUTOMATED NEUTROPHIL # 5.7 TH/MM3 (1.8-7.7); BASOPHIL # 0.1 TH/MM3 (0-0.2); BASOPHIL % 0.6 % (0.0-2.0); EOSINOPHIL # 0.4 TH/MM3 (0-0.4); EOSINOPHIL % 3.8 % (0.0-4.0); HEMATOCRIT 40.9 % (39.0-51.0); LYMPH % 22.6 % (9.0-44.0); LYMPHOCYTE # 2.4 TH/MM3 (1.0-4.8); MEAN CELL VOLUME 89.2 FL (80.0-100.0); MEAN CORPUSCULAR HGB CONC 33.6 % (32.0-36.0); MONO % 20.5 % (0.0-8.0); NEUT % 52.5 % (16.0-70.0); PLATELET COUNT 200 TH/MM3 (150-450); RED BLOOD COUNT 4.58 MIL/MM3 (4.50-5.90); RED CELL DISTRIBUTION WIDTH 14.1 % (11.6-17.2); WHITE BLOOD COUNT 10.8 TH/MM3 (4.0-11.0)
[2017-01-05 08:05] LABS: HEMO FLAGS AUTO DIFF
[2017-01-05] MEDS: SODIUM CHLORIDE 0.9% FLUSH 10 ML FLUSH IV FLUSH SCH ×2 (08:40→22:00)
--- NOTE | 2017-01-05 09:30 | HHI.FPPN ---
Subjective Remarks No acute events overnight. Pt doing well this AM. He complains of soreness in his left arm, but able to move fingers with sensation intact. Eating well. BM this morning. Denies CP, SOB, and N/V. (Ami Ge MD R1) Objective Vitals Vital Signs Date Time Temp Pulse Resp B/P (MAP) Pulse Ox O2 Delivery O2 Flow Rate FiO2 01/05/17 07:08 18 01/05/17 04:00 96.9 75 18 127/60 (82) 91 01/05/17 03:19 18 01/05/17 00:00 99.5 84 17 125/74 (91) 92 01/04/17 20:00 99.4 88 17 126/77 (93) 93 01/04/17 16:00 97.8 78 16 120/66 (84) 96 01/04/17 12:00 98.6 71 16 121/66 (84) 95 I/O 01/04/17 01/04/17 01/04/17 01/05/17 01/05/17 01/05/17 07:00 15:00 23:00 07:00 15:00 23:00 Intake Total 240 ml 1450 ml 240 ml Balance 240 ml 1450 ml 240 ml Intake Oral 240 ml 1200 ml 240 ml IV Total 250 ml # Voids 2 4 2 # Bowel Movements 2 (Ami Ge MD R1) Result Diagram: 01/05/17 0639 01/05/17 0639 Objective Remarks General: lying in bed in no distress, appears comfortable. Skin: Hand/wrist wrapped in dressing and elevated in sling, CV: NRRR, no murmur. Capillary refill of left hand is normal, less than 2 seconds. Lungs: CTAB Abdomen: Soft, nontender, nondistended, normal bowel sounds. Ext: L hand and wrist wrapped and in sling as above. Moves all digits well. Neuro: Good sensation in all left digits. Procedures 01/03 - I&D with extensor tenosynovectomy of 4th external compartment L hand/ wrist (Ami Ge MD R1) A/P Assessment and Plan Previously healthy 46 yo male presenting with: Discharge Planning Awaiting clearance from hand surgery (Ami Ge MD R1) Attending Attestation Patient seen and examined. Case reviewed and discussed with the resident team. Agree with plan of care as discussed with me and documented in the resident note. (Prisca Aleman MD) Problem List: (1) Infectious tenosynovitis of left wrist extensor ICD Codes: M65.132 - Other infective (teno)synovitis, left wrist Status: Resolved Plan: Admitted with cellulitis, taken to OR on 01/03 due to worsening symptoms , found to have infectious tenosynovitis S/p I&D with extensor tenosynovectomy of 4th compartment L hand/wrist on 01/03 Initial wound culture grew MSSA, san-sensitive Abscess Cx from OR pending - Hand surgery consulted, appreciate recommendations - Performed procedure noted above - F/u culture of abscess fluid - Continue antibiotic coverage with vancomycin until OR culture results available or until otherwise changed by hand surgery - Tylenol PRN for mild pain, Toradol for moderate/severe pain, Percocet for breakthrough pain (2) Infectious tenosynovitis of left wrist extensor ICD Codes: M65.132 - Other infective (teno)synovitis, left wrist Status: Resolved Plan: S/p I&D - Management as above (3) Cellulitis of hand, left ICD Codes: L03.114 - Cellulitis of left upper limb Status: Acute Plan: See above (4) Nutrition, metabolism, and development symptoms ICD Codes: R63.8 - Other symptoms and signs concerning food and fluid intake Plan: Fluids: by mouth Electrolytes: WNL Nutrition: regular diet DVT ppx: low risk for DVT, encourage mobilization Code status: full code Dispo: Pending clearance by hand surgery (Ami Ge MD R1) Ami Ge MD R1 Jan 05, 2017 09:30 Prisca Aleman MD Jan 06, 2017 11:52
[2017-01-05 09:32] LABS: BANDS 1 % (0-6); BASOPHILS 1 % (0-2); EOSINOPHILS 6 % (0-4); POLYS (SEG NEUTROPHILS) 64 % (16-70); WBC DIFF SAMPLE 100
[2017-01-05 09:33] LABS: PLATELET ESTIMATE SMEAR NORMAL (NORMAL); PLATELET MORPHOLOGY NORMAL (NORMAL); SCAN/DIFF FINAL DIFF MANUAL
--- NOTE | 2017-01-05 12:22 | HHI.DCPOC ---
Discharge Care Plan Goals to Promote Your Health * To prevent worsening of your condition and complications, follow up with your primary care physician within one week after hospital discharge. Continue to take your antibiotics as prescribed. Directions to Meet Your Goals Take your medications as prescribed Follow your dietary instruction Follow activity as directed Keep your appointments as scheduled Take your immunizations and boosters as scheduled If your symptoms worsen call your PCP, if no PCP go to Urgent Care Center or Emergency Room Smoking is Dangerous to Your Health. Avoid second hand smoke Call the 24-hour hour crisis hotline for domestic abuse at Vinicius Pierre MD R2 Jan 05, 2017 12:22
[2017-01-05] MEDS ORDERED: PHARMACY ORDERED LAB ONE (13:45)
[2017-01-05] MEDS: ONDANSETRON ODT 4 MG TAB PO PRN (15:56)
--- NOTE | 2017-01-05 17:12 | HHI.PR ---
Subjective Remarks complains of pain no fever denies any numbness complaint with limb elevation Objective Vital Signs Date Time Temp Pulse Resp B/P (MAP) Pulse Ox O2 Delivery O2 Flow Rate FiO2 01/05/17 16:00 98.8 79 18 121/67 (85) 95 01/05/17 15:57 18 01/05/17 12:36 18 01/05/17 12:00 97.5 81 18 130/83 (99) 96 01/05/17 08:00 98.5 71 18 120/77 (91) 94 01/05/17 04:00 96.9 75 18 127/60 (82) 91 01/05/17 00:00 99.5 84 17 125/74 (91) 92 01/04/17 20:00 99.4 88 17 126/77 (93) 93 I/O 01/04/17 01/04/17 01/04/17 01/05/17 01/05/17 01/05/17 07:00 15:00 23:00 07:00 15:00 23:00 Intake Total 240 ml 1450 ml 240 ml Balance 240 ml 1450 ml 240 ml Intake Oral 240 ml 1200 ml 240 ml IV Total 250 ml # Voids 2 4 2 # Bowel Movements 2 left wrist and hand packing in place swelling noted over the dorsal aspect range of motion is limited and painful minimal clear drainage noted after packing removal gram stain and cultures: staph sensitive to oxacillin Result Diagram: 01/05/17 0639 01/05/17 0639 Assessment and Plan Assessment and Plan 46 year old male s/p incision and drainage, extensor tenosynovectomy fourth compartment left wrist and hand POD 2 Plan: packing removed dry dressing applied keep the part elevated range of motion exercises continue antibiotics plan for discharge tomorrow. hand surgery will follow. Caio Salinas MD Jan 05, 2017 17:11
[2017-01-05] MEDS: ZOLPIDEM TARTRATE 10 MG TAB PO PRN (22:00)
[2017-01-06 01:56] VITALS: BP 128/77; PULSE 93; RESP 16; TEMP 98.6; O2SAT 98
[2017-01-06] MEDS: oxyCODONE/ACETAMINOPHEN 5 MG/325 MG TAB PO PRN (01:59)
[2017-01-06] MEDS: VANCOMYCIN 1,500 MG/NS 500 ML IV SCH ×4 (02:00→14:25)
[2017-01-06] MEDS: KETOROLAC TROMETHAMINE 30 MG/ML (IVP) VIAL IV PUSH PRN ×2 (02:00→08:23)
[2017-01-06] MEDS ORDERED: PERC7.5T13 PO (07:50)
[2017-01-06] MEDS: SODIUM CHLORIDE 0.9% FLUSH 10 ML FLUSH IV FLUSH SCH (08:28)
[2017-01-06 08:39] VITALS: BP 137/89; PULSE 66; RESP 16; TEMP 97.7; O2SAT 96
[2017-01-06] MEDS: oxyCODONE/ACETAMINOPHEN 7.5 MG/325 MG TAB PO PRN ×2 (09:27→14:24)
--- NOTE | 2017-01-06 11:25 | HHI.FPPN ---
Subjective Remarks No acute events overnight. Afebrile, vitals stable. Patient states his pain could be better controlled but overall has not been severe. Denies any numbness , tingling, or paresthesias of his left hand. Denies any fevers, chest pain, shortness of breath, cough. Patient was reexamined later this morning following the patient reporting some discomfort around the left side of his neck. Patient denies any jamel pain or swelling of his neck. No issues swallowing or eating. (Vinicius Pierre MD R2) Objective Vitals Vital Signs Date Time Temp Pulse Resp B/P (MAP) Pulse Ox O2 Delivery O2 Flow Rate FiO2 01/06/17 08:39 97.7 66 16 137/89 (105) 96 01/06/17 03:18 16 01/06/17 03:18 16 01/06/17 01:56 98.6 93 16 128/77 (94) 98 01/05/17 22:10 95 01/05/17 20:41 95 01/05/17 20:00 98.2 82 20 136/88 (104) 93 01/05/17 16:00 98.8 79 18 121/67 (85) 95 01/05/17 12:00 97.5 81 18 130/83 (99) 96 I/O 01/05/17 01/05/17 01/05/17 01/06/17 01/06/17 01/06/17 07:00 15:00 23:00 07:00 15:00 23:00 Intake Total 240 ml 250 ml 1200 ml Balance 240 ml 250 ml 1200 ml Intake Oral 240 ml 1200 ml IV Total 250 ml # Voids 2 7 # Bowel Movements 1 (Vinicius Pierre MD R2) Result Diagram: 01/05/1763801/05/17 0639 Objective Remarks General: lying in bed in no distress, appears comfortable. Skin: Hand/wrist wrapped in dressing and elevated in sling Neck: No LAD. No visible swelling, redness, or pain/discomfort with palpation. CV: NRRR, no murmur. Capillary refill of left hand digits is normal, less than 2 seconds. Lungs: CTAB, no w/r/r Abdomen: Soft, nontender, nondistended, normal bowel sounds. Ext: L hand and wrist wrapped and in sling as above. Moves all digits well. Neuro: Good sensation in all left digits. Procedures 01/03 - I&D with extensor tenosynovectomy of 4th external compartment L hand/ wrist (Vinicius Pierre MD R2) A/P Assessment and Plan Previously healthy 46 yo male presenting with: Discharge Planning Anticipate discharge home later today with PO antibiotics to be continued as an outpatient (Vinicius Pierre MD R2) Attending Attestation Patient seen and examined. Case reviewed and discussed with the resident team. Agree with plan of care as discussed with me and documented in the resident note. (Isis Price MD) Problem List: (1) Infectious tenosynovitis of left wrist extensor ICD Codes: M65.132 - Other infective (teno)synovitis, left wrist Status: Resolved Plan: Admitted with cellulitis, taken to OR on 01/03 due to worsening symptoms , found to have infectious tenosynovitis S/p I&D with extensor tenosynovectomy of 4th compartment L hand/wrist on 01/03 Initial wound culture grew MSSA, san-sensitive Abscess Cx from OR growing pansensitive staph - Hand surgery consulted, appreciate recommendations - Performed procedure noted above - Continue antibiotic coverage with vancomycin as an inpatient - Will complete an additional 10 days of PO Levaquin as an outpatient - Tylenol PRN for mild pain - Percocet increased to 7.5/325 prn pain 6-10 - Prescribed kaley-colace to be taken as outpatient (2) Infectious tenosynovitis of left wrist extensor ICD Codes: M65.132 - Other infective (teno)synovitis, left wrist Status: Resolved Plan: S/p I&D - Management as above (3) Cellulitis of hand, left ICD Codes: L03.114 - Cellulitis of left upper limb Status: Acute Plan: See above (4) Nutrition, metabolism, and development symptoms ICD Codes: R63.8 - Other symptoms and signs concerning food and fluid intake Plan: Fluids: by mouth Electrolytes: WNL Nutrition: regular diet DVT ppx: low risk for DVT, encourage mobilization Code status: full code (Vinicius Pierre MD R2) Vinicius Pierre MD R2 Jan 06, 2017 11:25 Isis Price MD Jan 06, 2017 12:17
[2017-01-06] MEDS ORDERED: LEVO750T3 PO (11:37)
[2017-01-06] MEDS ORDERED: SENN8.6T88 PO (11:37)
[2017-01-06 12:11] VITALS: BP 140/87; PULSE 79; RESP 16; TEMP 98.1; O2SAT 97
[2017-01-06] MEDS: ONDANSETRON ODT 4 MG TAB PO PRN (14:27)
[2017-01-06 16:39] VITALS: BP 116/68; PULSE 68; RESP 16; TEMP 98.3; O2SAT 97
[2017-01-07] MEDS ORDERED: PHARMACY ORDERED LAB ONE (13:45)
--- NOTE | 2017-01-08 10:05 | HHI.DS ---
Discharge Summary Admission Date Jan 02, 2017 at 11:46 Discharge Date: Jan 06, 2017 Admitting Diagnosis left hand cellulitis, failed outpatient antibiotics (1) Infectious tenosynovitis of left wrist extensor Diagnosis: Principal Plan: Admitted with cellulitis, taken to OR on 01/03 due to worsening symptoms , found to have infectious tenosynovitis S/p I&D with extensor tenosynovectomy of 4th compartment L hand/wrist on 01/03 Initial wound culture grew MSSA, san-sensitive Abscess Cx from OR growing pansensitive staph - Hand surgery consulted, appreciate recommendations - Performed procedure noted above - Continue antibiotic coverage with vancomycin as an inpatient - Will complete an additional 10 days of PO Levaquin as an outpatient - Tylenol PRN for mild pain - Percocet increased to 7.5/325 prn pain 6-10 - Prescribed kaley-colace to be taken as outpatient ICD Codes: M65.132 - Other infective (teno)synovitis, left wrist Status: Resolved (2) Infectious tenosynovitis of left wrist extensor Diagnosis: Principal Plan: S/p I&D - Management as above ICD Codes: M65.132 - Other infective (teno)synovitis, left wrist Status: Resolved (3) Cellulitis of hand, left Diagnosis: Principal Plan: See above ICD Codes: L03.114 - Cellulitis of left upper limb Status: Acute (4) Nutrition, metabolism, and development symptoms Diagnosis: Secondary Plan: Fluids: by mouth Electrolytes: WNL Nutrition: regular diet DVT ppx: low risk for DVT, encourage mobilization Code status: full code ICD Codes: R63.8 - Other symptoms and signs concerning food and fluid intake Consultants Hand surgery Procedures 01/03 - I&D with extensor tenosynovectomy of 4th external compartment L hand/ wrist Brief History Patient is a 46- year-old- Male with no significant past medical history presenting to the ED with complaints of worsening Left hand pain, redness and swelling. Patient stated that Shireen he lacerated the top of his Left hand while repairing a car. He went to [facility] yesterday where he was prescribed bactrim and clyndamycin without any improvements. He reports today his Left hand pain and swelling increased and the redness is spreading past his wrist. Pt rates pain 6-7/10 initially but currently 2/10 after pain medication were given. Denies fever, chills, N/V, numbness or tingling of Left hand. Of note pt stated he received tetanus vaccine. Patient is accompanied by his . CBC/BMP: 01/05/17 0639 01/05/17 0639 Significant Findings Laboratory Tests Test 01/05/17 14:28 Vancomycin Level Trough 4.1 MCG/ML (5.0-10.0) Imaging Hand x-ray from 01/02: Unremarkable limited examination of the left hand PE at Discharge General: lying in bed in no distress, appears comfortable. Skin: Hand/wrist wrapped in dressing and elevated in sling Neck: No LAD. No visible swelling, redness, or pain/discomfort with palpation. CV: NRRR, no murmur. Capillary refill of left hand digits is normal, less than 2 seconds. Lungs: CTAB, no w/r/r Abdomen: Soft, nontender, nondistended, normal bowel sounds. Ext: L hand and wrist wrapped and in sling as above. Moves all digits well. Neuro: Good sensation in all left digits. Hospital Course The patient was started on IV Ancef on admission. The patient the day after admission developed increased swelling and erythema. He was then started on vancomycin and consultation to hand surgery was placed. Upon initial evaluation by hand surgery, plan was for incision and drainage if no improvement in symptoms with IV antibiotics. The patient did need to be taken to the OR initially for suspected abscess of the left hand and for incision and drainage but was found to have infectious tenosynovitis of his fourth extensor compartment of the left wrist and hand surgery performed extensor tenosynovectomy of left fourth extensor compartment in addition to I&D. He was continued on vancomycin. The wound culture obtained from the abscess in the OR grew rare growth of MSSA, no anaerobes were isolated. The patient was stable after surgery, discharged and instructed to complete an additional 10 days of po levaquin. Pt Condition on Discharge: Stable Discharge Disposition: Discharge Home Discharge Instructions DIET: Follow Instructions for: As Tolerated, No Restrictions Activities you can perform: Regular-No Restrictions Follow up Referrals: Appointment for Follow Up - 1 Week with Caio Salinas MD Hand Surgery - 1 Week PCP Follow-up - 1 Week New Medications: Levofloxacin (Levofloxacin) 750 Mg Tablet 750 MG PO DAILY for Infection, #10 TAB 0 Refills Oxycodone-Acetaminophen (Percocet) 7.5-325 mg Tab 1 TAB PO Q4H PRN for PAIN, #21 TAB 0 Refills Sennosides/Docusate Sodium (Senna-Docusate Sodium Tablet) 8.6 Mg-50 Mg Tablet 2 TAB PO BID, #60 TAB Continued Medications: Folic Acid (Folic Acid) 1 Mg Tablet 1 MG PO DAILY Discontinued Medications: Clindamycin (Clindamycin) 300 Mg Cap 600 MG PO Q8H for Infection, CAP 0 Refills Tramadol (Tramadol) 50 Mg Tab 50 MG PO Q6H PRN for PAIN, TAB 0 Refills Vinicius Pierre MD R2 Jan 08, 2017 10:05
== END 2017-01-06 17:56 | disposition home or self-care (01) | DRG 501 ==
LOC: NEPE 09:27 → INTOOBSV 11:46 → NEDA 11:46 → OBSVTOIN 11:46 → N07B 12:43
PROVIDERS: ADMIT Family Medicine; ATTEND Family Medicine
PROC: 0LB80ZZ Excision of Left Hand Tendon, Open Approach (ICD-10-PCS; 2017-01-03)
PROC: 0KNB0ZZ Release Left Lower Arm and Wrist Muscle, Open Approach (ICD-10-PCS; principal; 2017-01-03 19:30)
DX: M65.132 Other infective (teno)synovitis, left wrist (principal); L03.114 Cellulitis of left upper limb; L02.512 Cutaneous abscess of left hand; F12.90 Cannabis use, unspecified, uncomplicated; R60.9 Edema, unspecified; S61.412A Laceration without foreign body of left hand, initial encounter; B95.61 Methicillin susceptible Staphylococcus aureus infection as the cause of diseases classified elsewhere; F41.9 Anxiety disorder, unspecified; W27.8XXA Contact with other nonpowered hand tool, initial encounter; Y92.9 Unspecified place or not applicable; Z23 Encounter for immunization; Z87.891 Personal history of nicotine dependence
CPT/HCPCS: 73120; 80048; 80053; 80202; 82565; 83605; 84520; 85007; 85025; 85027; 86403; 87015; 87040; 87070; 87102; 87116; 87147; 87186; 87205; 87206; 90471; 90686; 90714; 96365; 96375; J0690; J1170; J1580; J1885; J2405; J3370; J7040; J7050; Q2038